=== PATIENT | female | born 1995 | race Caucasian/White ===

== ENCOUNTER → 2016-09-30 | Outpatient (CLI) | payer OTHER ==
[~2016-09-30] MED LIST: BCPILLS PO
== END | disposition home or self-care (01) ==
LOC: C.PAPS 09:30
PROVIDERS: ATTEND Obstetrics & Gynecology
DX: Z01.419 Encounter for gynecological examination (general) (routine) without abnormal findings (principal)

== ENCOUNTER → 2017-11-01 | Outpatient (CLI) | payer OTHER | END | disposition home or self-care (01) | LOC: C.PAPS 16:27 | PROVIDERS: ATTEND Physician Assistant | DX: Z12.4 Encounter for screening for malignant neoplasm of cervix (principal) ==

== ENCOUNTER → 2017-11-01 | Outpatient (CLI) | payer OTHER | END | disposition home or self-care (01) | LOC: C.LABSPEC 16:09 | PROVIDERS: ATTEND Physician Assistant | DX: Z11.3 Encounter for screening for infections with a predominantly sexual mode of transmission (principal); Z11.8 Encounter for screening for other infectious and parasitic diseases ==

== ENCOUNTER 2018-02-03 15:34 | Emergency (ER) | payer OTHER ==
[~2018-02-03] VITALS: Ht 162.6 cm; Wt 62.2 kg
[2018-02-03 15:40] VITALS: TEMP 36.7; Ht 162.6 cm; Wt 62.2 kg
[2018-02-03] MEDS ORDERED: NORE-21 PO (16:02)
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
[2018-02-03] MEDS ORDERED: CYCL10TA6 PO (16:59)
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
[2018-02-03 17:13] VITALS: BP 101/56; PULSE 62; O2SAT 97
== END 2018-02-03 17:17 | disposition home or self-care (01) ==
LOC: C.EDB 15:36 → C.EDD 17:17
DX: S06.0X9A Concussion with loss of consciousness of unspecified duration, initial encounter (principal); S16.1XXA Strain of muscle, fascia and tendon at neck level, initial encounter; S39.012A Strain of muscle, fascia and tendon of lower back, initial encounter; V89.2XXA Person injured in unspecified motor-vehicle accident, traffic, initial encounter; R40.2412 Glasgow coma scale score 13-15, at arrival to emergency department